=== PATIENT | female | born 1975 | race African-American/Black ===

== ENCOUNTER 2016-12-13 09:20 | Inpatient (IN) | payer BC ==
--- NOTE | ~2016-12-13 | CT2 ---
[facility] A Service of [facility] & [facility] RADIOLOGY TEXT RESULTS PATIENT: REMBERTO CHATTERJEE LOCATION: [facility] : [birth year] UNIT #: [id number] AGE: [address]: Royce Gonzalez MD SEX: F ORDER DR: [id number] [facility] [address] [place], [place] [address] [id number] MR#: [id number] Acc #: [id number] NAME: REMBERTO CHATTERJEE : 1975 SEX: F STUDY DATE/TIME: 12/13/2016 12:00 UNIT: [facility] ROOM: STUDY DESCRIPTION: CT Abd and Pelv W Cont Attending Physician: Royce Gonzalez M.D. Ordering Physician: Royce Gonzalez M.D. Primary Care Physician: Jose Lewis M.D. MEDICAL IMAGING REPORT This report is preliminary unless electronic signature is present EXAM Abdomen and pelvis CT with contrast, 12/13/2016. INDICATIONS Low abdominal pain extending into the back for 4 days. Symptom duration verified with the technologist prior to dictation. TECHNIQUE Contrast-enhanced abdomen and pelvis CT was performed. There are no comparisons. This CT exam was performed with one or more of the following radiation dose reduction techniques: automatic exposure control, adjustment of mA and/or kV according to patient size, and iterative reconstruction. FINDINGS CT ABDOMEN Included lung bases are clear. Aorta unremarkable. The spleen and right adrenal glands are normal. There is a low-attenuation mass in the left adrenal gland measuring up to 2.3 cm. 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 This could be better assessed with MRI or noncontrast CT non-emergently. The pancreas is unremarkable. The gallbladder is contracted and the liver and kidneys are unremarkable. CT PELVIS Bladder unremarkable. There is a proteinaceous or hemorrhagic cyst in the right ovary measuring 3.4 cm, likely physiologic based on imaging features. There is a multilocular rim-enhancing fluid collection in the left hemipelvis. Imaging features are most characteristic of an abscess until proven otherwise. Dimensions are about 5.8 x 5.5 x 6.3 cm. There is some subtle inflammatory change of the sigmoid colon related to short-segment STS. [facility] A Service of [facility] & [facility] RADIOLOGY TEXT RESULTS PATIENT: REMBERTO CHATTERJEE LOCATION: [facility] : [birth year] UNIT #: [id number] AGE: [address]: Royce Gonzalez MD SEX: F ORDER DR: diverticulitis and that is presumably the nidus for the abscess. The other cystic foci associated with the dominant cystic component may relate to a multilocular abscess or could potentially be related to a left ovarian cyst separate from the abscess. These potentially separate components measure up to about 4.3 cm maximum diameter. There is no free air or upstream bowel obstruction. The appendix is normal. Inguinal canal is unremarkable. There is no suspicious bone lesion. IMPRESSION 1. Abnormal examination. There is an air and fluid collection with rim enhancement in the left hemipelvis most characteristic of an abscess measuring up to 6.3 x 5.8 cm. This presumably is arising secondary to short-segment diverticulitis of the sigmoid colon. 2. There are adjacent additional cystic foci that may relate to the dominant abscess or alternatively represent cystic changes in the left ovary. The cystic components measure up to 4.3 cm and are situated along the superior margin of the abscess. 3. Incidental proteinaceous or hemorrhagic cyst also present in the right ovary. 4. There is no free air or bowel obstruction and the appendix is normal. 5. Incompletely characterized left adrenal nodule measures 2.3 cm. This may represent a lipid poor adenoma. See discussion above. 6. Findings discussed with Dr. Gonzalez in the emergency department. STAT * RESULT Dictated by... Bismark Hood M.D. THIS IS AN ELECTRONICALLY VERIFIED REPORT Bismark Hood M.D. at 12/13/2016 3:59 PM Lucas TD: 12/13/2016 14:00 JOB #: [id number] MEDICAL IMAGING REPORT Page 1 of 1 COPY
--- NOTE | ~2016-12-13 | US97 ---
[facility] A Service of [facility] & [facility] RADIOLOGY TEXT RESULTS PATIENT: REMBERTO CHATTERJEE LOCATION: [facility] 463-01 : [birth year] UNIT #: [id number] AGE: [address]: Pierre Cano MD SEX: F ORDER DR: [id number] [facility] [address] [place], [place] [address] [id number] I MR#: [id number] #: [id number] NAME: REMBERTO CHATTERJEE : 1975 SEX: F STUDY DATE/TIME: 12/15/2016 12:25 UNIT: [facility] ROOM: [facility] STUDY DESCRIPTION: US Pelvic Duplex Limited Attending Physician: Pierre Cano Jr., M.D. Ordering Physician: Summer Klein M.D. Primary Care Physician: Jose Lewis M.D. MEDICAL IMAGING REPORT This report is preliminary unless electronic signature is present EXAM Pelvic ultrasound. INDICATION Pelvic pain for 3 days. This patient had a CT scan performed December 13, 2016 which showed a complex gas-containing collection intimately associated with the left ovary and also abutting the sigmoid colon. Drainage was initially requested. However, given the proximity to the left ovary, pelvic ultrasound was recommended. TECHNIQUE Schaefer-scale and color Doppler sonographic images were obtained through the pelvis, both transabdominally transvaginally. FINDINGS This patient has a hypoechoic structure arising from the right ovary measuring 2.3 x 2.2 x 2.7 cm. It may reflect a cyst. It does appear to have some internal debris within it, potentially may reflect a hemorrhagic cyst. There is a complex, predominantly hypoechoic lesion arising from the left ovary and there is potentially some color-Doppler flow within it. There is dirty shadowing associated with it which would be in keeping with gas located within it. Patient's uterus is unremarkable and is homogeneous in echotexture and no focal uterine masses are seen. Both ovaries demonstrate normal color-Doppler flow. IMPRESSION This patient has a complex structure arising from the left ovary on prior CT that appeared to be a fluid and gas-containing collection and the possibility that this reflects tuboovarian abscess is not excluded. However, on some of the images there does appear to be some color Doppler flow in the periphery of it and is certainly much more solid in appearance on transvaginal images. Possibility of an underlying ovarian lesion is not excluded. Gynecologic consultation is recommended. At a minimum, [facility] A Service of [facility] RADIOLOGY TEXT RESULTS PATIENT: REMBERTO CHATTERJEE LOCATION: [place] [address] : [birth year] UNIT #: [id number] AGE: [address]: Pierre Cano MD SEX: F ORDER DR: short-term sonographic followup is recommended and further evaluation with pelvic MRI could also be considered. Patient also has a hypoechoic lesion arising from the right ovary, which appears more complex than a simple ovarian cyst. It may reflect a hemorrhagic cyst, but I would suggest again short-term sonographic followup. Dictated by... Summer Klein M.D. THIS IS AN ELECTRONICALLY VERIFIED REPORT Summer Klein M.D. at 12/18/2016 8:14 AM JV/nancy TD: 12/16/2016 10:09 JOB #: [id number] MEDICAL IMAGING REPORT Page 1 of 1 COPY
--- NOTE | ~2016-12-13 | HP ---
Unit #: [id number] #: [id number] Patient: REMBERTO SNELL [id number] [address] [address] [id number] I MR#: [id number] NAME: REMBERTO SNELL ROOM: 463 Age: 41 Sex: F Admission Date: 12/13/2016 : 1975 Attending Physician: Pierre Cano Jr., M.D. Primary Care Physician: Jose Lewis M.D. HISTORY AND PHYSICAL HISTORY OF PRESENT ILLNESS Ms. Snell is a 41-year-old obese black female with left lower quadrant abdominal pain radiating to her back. She underwent CT scanning with no contrast. She was noted to have what appears to be an abscess in the pelvis, consistent with diverticular abscess. The patient was nontoxic, however, and they gave her two doses of antibiotics in the emergency room, Flagyl and Levaquin. The patient was comfortable and was admitted to the floor. PAST MEDICAL HISTORY No previous attacks like this. She denies any cardiovascular disease. No diabetes. No hypertension. PAST SURGICAL HISTORY She has had two previous tubal ligations and knee surgery. SOCIAL HISTORY She does smoke tobacco. Does drink alcohol. Uses marijuana. FAMILY HISTORY No family history positive. ALLERGIES Penicillin. REVIEW OF SYSTEMS No other review of systems positive. PHYSICAL EXAMINATION GENERAL: Cooperative, alert, black female. VITALS: Pulse 100, temperature 99, respiratory rate 16, blood pressure 144/90. HEENT: Clear. No jaundice. Pupils equal and reactive to light. CHEST: Clear. HEART: Rhythm is regular. ABDOMEN: Soft and nontender. No peritoneal signs at all, any of the quadrants. No palpable bladder. No CVA tenderness. EXTREMITIES: Full range of motion. 1-2+ peripheral pulses bilaterally without any edema. No clubbing or cyanosis. NEUROLOGIC: Cranial nerves II through XII intact. No gross motor or sensory deficits. ASSESSMENT Possible diverticulitis with pelvic abscess. Unit #: [id number] #: [id number] Patient: REMBERTO SNELL PLAN We will go ahead and proceed with intravenous antibiotics and then drainage percutaneously per interventional radiology. Dictated by Rosalio Baca/chiquis TD: 12/14/2016 07:59 JOB #: [id number] HISTORY AND PHYSICAL Page 1 of 1 X Brigido Ruiz MD HISTORY AND PHYSICAL
--- NOTE | ~2016-12-13 | DS ---
Unit #: [id number] #: [id number] Patient: REMBERTO CHATTERJEE [id number] [address] [address] [id number] I MR#: [id number] NAME: REMBERTO CHATTERJEE ROOM: 463 Age: 41 Sex: F Admission Date: 12/13/2016 : 1975 Discharge Date: 12/17/2016 Attending Physician: Pierre Cano Jr., M.D. Primary Care Physician: Jose Lewis M.D. DISCHARGE SUMMARY DISCHARGE DIAGNOSIS Tuboovarian abscess. PROCEDURE None. HOSPITAL COURSE The patient is a 41-year-old lady who presented with abdominal pain. Original CT scan showed a cystic mass in the left hemipelvis consistent with possible diverticular disease. Further workup revealed, what appeared to be, a tuboovarian process. She underwent ultrasound, which showed fluid filled mass consistent with abscess versus tumor. She was started on antibiotics, with which she improved. She remained afebrile. DISPOSITION The patient will be discharged home. CONDITION UPON DISCHARGE Good condition. DISCHARGE DIET She is to follow a regular diet as tolerated. ACTIVITY Activity levels were discussed. FOLLOW-UP She is to follow up with gynecology, either Dr. Gutierrez or Dr. Mckenzie. MEDICATIONS Her regular home medications and [place] 7.5 mg q.4 p.r.n., as well as Levaquin 500 mg q.24 for 10 days. Dictated by... Rosalio Sunshine/yazan TD: 12/17/2016 12:19 JOB #: [id number] Unit #: [id number] #: [id number] Patient: REMBERTO CHATTERJEE DISCHARGE SUMMARY Page 1 of 1 X Nickolas Ledbetter MD X DISCHARGE SUMMARY
[2016-12-13 10:45] LABS: URINE SOURCE CLEAN CATCH
[2016-12-13 10:54] LABS: BASOPHIL# 0.1 X10e3 (0-0.3); BASOPHIL% 0.5 % (0-2.5); EOSINOPHIL# 0.1 X10e3 (0-0.7); HEMATOCRIT 33.7 % (35.0-45.0); HEMOGLOBIN 10.7 gm/dL (12.0-16.0); LYMPHOCYTE# 1.8 X10e3 (1.0-3.5); LYMPHOCYTE% 18.2 % (17.0-45.0); MEAN CELL VOLUME 78.8 FL (83-96); MEAN CORPUSCULAR HGB CONC 31.7 g/dL (30-36); MEAN PLATELET VOLUME 7.2 FL (6.5-11.5); MONOCYTE# 0.8 X10e3 (0-1.0); MONOCYTE% 7.9 % (3.0-12.0); NEUTROPHIL# 7.1 X10e3 (1.5-7.1); NEUTROPHIL% 72.4 % (40-75); PLATELET COUNT 389 X10e3 (140-420); RED BLOOD COUNT 4.28 X10e (3.90-5.30); RED CELL DISTRIBUTION WIDTH 17.9 % (11.0-15.5); WHITE BLOOD COUNT 9.8 X10e3 (4.0-10.5)
[2016-12-13 10:56] LABS: DIFF IND NO; URINE APPEARANCE CLEAR; URINE BILIRUBIN NEG (NEG); URINE BLOOD NEG (NEG); URINE COLOR YELLOW; URINE GLUCOSE NEG (NEG); URINE KETONE TRACE (NEG); URINE LEUKOCYTE ESTERASE 1+ (NEG); URINE NITRATE NEG (NEG); URINE PH 5.5 (5-8); URINE PROTEIN TRACE (NEG); URINE SPECIFIC GRAVITY 1.024 (1.003-1.035)
[2016-12-13 10:57] LABS: CULTURE INDICATED? YES; URINE BACTERIA AUWI 1+ (NEGATIVE); URINE SQUAMOUS EPITHELIAL CELL OCC /[HPF]
[2016-12-13 11:15] LABS: ALBUMIN SERUM 3.5 g/dL (3.5-5.0); ALKALINE PHOSPHATASE 77 U/L (32-92); ALT (SGPT) 14 U/L (10-40); AST (SGOT) 12 U/L (10-42); BILIRUBIN,TOTAL 0.6 mg/dL (0.2-2.0); BLOOD UREA NITROGEN 10 mg/dL (9-23); CALCIUM SERUM 8.8 mg/dL (8.4-10.2); CARBON DIOXIDE 27 mmol/L (22-31); CHLORIDE 101 mmol/L (100-111); CREATININE SERUM 0.8 mg/dL (0.6-1.4); GLOM FILT RATE Estimated 105.5 mL/min (>60); GLUCOSE FASTING 94 mg/dL (70-110); LIPASE 20 U/L (22-51); POTASSIUM 3.5 mmol/L (3.5-5.1); SODIUM 135 mmol/L (135-145)
[2016-12-13 11:26] LABS: BILIRUBIN, DIRECT <0.1 mg/dL (0.0-0.2); BILIRUBIN,INDIRECT 0.5 mg/dL (0.0-0.9)
[2016-12-13] MEDS ORDERED: NO MEDICATIONS (17:11)
[2016-12-15 08:59] LABS: BASOPHIL# 0.1 X10e3 (0-0.3); BASOPHIL% 0.6 % (0-2.5); EOSINOPHIL% 0.3 % (0.0-7.0); HEMATOCRIT 32.1 % (35.0-45.0); HEMOGLOBIN 9.9 gm/dL (12.0-16.0); LYMPHOCYTE# 1.6 X10e3 (1.0-3.5); LYMPHOCYTE% 18.7 % (17.0-45.0); MEAN CELL VOLUME 78.7 FL (83-96); MEAN CORPUSCULAR HEMOGLOBIN 24.3 PG (28-34); MEAN CORPUSCULAR HGB CONC 30.8 g/dL (30-36); MEAN PLATELET VOLUME 6.9 FL (6.5-11.5); MONOCYTE# 0.7 X10e3 (0-1.0); MONOCYTE% 7.7 % (3.0-12.0); NEUTROPHIL# 6.3 X10e3 (1.5-7.1); NEUTROPHIL% 72.7 % (40-75); PLATELET COUNT 406 X10e3 (140-420); RED BLOOD COUNT 4.08 X10e (3.90-5.30); RED CELL DISTRIBUTION WIDTH 18.1 % (11.0-15.5); WHITE BLOOD COUNT 8.7 X10e3 (4.0-10.5)
[2016-12-15 09:01] LABS: DIFF IND NO
[2016-12-15 09:12] LABS: INR 1.1; PARTIAL THROMBOPLASTIN TIME 33.2 SECONDS (23.5-31.3); PROTHROMBIN TIME (PATIENT) 12.1 SECONDS (10.0-11.7)
[2016-12-16 03:03] LABS: HEMATOCRIT 27.2 % (35.0-45.0); HEMOGLOBIN 8.5 gm/dL (12.0-16.0); MEAN CELL VOLUME 78.5 FL (83-96); MEAN CORPUSCULAR HEMOGLOBIN 24.6 PG (28-34); MEAN CORPUSCULAR HGB CONC 31.3 g/dL (30-36); RED BLOOD COUNT 3.46 X10e (3.90-5.30); RED CELL DISTRIBUTION WIDTH 17.4 % (11.0-15.5); WHITE BLOOD COUNT 6.6 X10e3 (4.0-10.5)
[2016-12-17] MEDS ORDERED: LEVAQUIN (07:38)
[2016-12-17] MEDS ORDERED: LEVAQUIN PO (07:39)
[2016-12-17] MEDS ORDERED: HYDROCODON-ACE1 EAC9 PO (07:42)
== END 2016-12-17 09:15 | disposition home or self-care (01) | DRG 759 ==
LOC: CED 09:20 → C4C 13:50 → CED 16:31 → C4C 12-17 09:15
PROVIDERS: Emergency Medicine; Radiology Diagnostic Radiology; Surgery
DX: N70.93 Salpingitis and oophoritis, unspecified (principal); F17.210 Nicotine dependence, cigarettes, uncomplicated; Z88.0 Allergy status to penicillin; F12.10 Cannabis abuse, uncomplicated
CPT/HCPCS: 36415; 74177; 76856; 80048; 80076; 81003; 83690; 84703; 85025; 85027; 85610; 85730; 87086; 96374; 96375; 99285; C9113; G0480; J1885; J1956; J2185; J2270; J2405; J3411; Q9967